=== PATIENT | male | born 1945 | race Caucasian/White ===

== ENCOUNTER → 2017-08-24 | Day surgery (SDC) | payer MEDICARE, BC ==
[~2017-08-24] MED LIST: ADVAIR; ADVAIR 500/501 EA INH; ALLEGRA ALLERGY60 MG PO; ASPIRIN81 MG PO; COMBIVENT RESPIM4 GM IH; CRESTOR10 MG PO; DIOVAN HCT 3201 EACH PO; DIOVAN80 MG PO; DUONEB NEB; FENTANYL CITRATE/PF 100MCG/2 ML INJ ONE; FISH OIL 1,2001 EACH; FLOMAX0.4 MG PO; INCRUSE INH; METOPROLOL TART25 MG PO; MIDAZOLAM HCL 2 MG/2 ML VIAL ONE; MONTELUKAST SOD10 MG PO; NORCO 10-325 T1 EACH PO; OR PHACO EYE KIT ONE; PANTOPRAZOLE SO40 MG PO; PLAVIX75 MG PO; PREOP PHACO EYE KIT ONE; PROTONIX40 MG/ML; STENDRA PO; TESTOSTERO200 MG/1 M IM; VITAMIN C1000 MG; VITAMIN C500 MG PO; VITAMIN E400 UNI1; ZETIA10 MG PO; [UNRECOGNIZED DRUG - OTHER]
== END | disposition home or self-care (01) ==
LOC: OR 10:05
PROVIDERS: ATTEND Ophthalmology
DX: H25.11 Age-related nuclear cataract, right eye (principal); I10 Essential (primary) hypertension; J45.909 Unspecified asthma, uncomplicated; I25.810 Atherosclerosis of coronary artery bypass graft(s) without angina pectoris; E78.5 Hyperlipidemia, unspecified; Z79.02 Long term (current) use of antithrombotics/antiplatelets; Z79.82 Long term (current) use of aspirin; Z95.1 Presence of aortocoronary bypass graft
CPT/HCPCS: 66984; J2250; V2788

== ENCOUNTER → 2017-09-07 | Day surgery (SDC) | payer MEDICARE, BC | END | disposition home or self-care (01) | LOC: OR 11:14 | PROVIDERS: ATTEND Ophthalmology | DX: H25.12 Age-related nuclear cataract, left eye (principal); I25.810 Atherosclerosis of coronary artery bypass graft(s) without angina pectoris; I10 Essential (primary) hypertension; E78.5 Hyperlipidemia, unspecified; J45.909 Unspecified asthma, uncomplicated; H91.90 Unspecified hearing loss, unspecified ear; Z79.02 Long term (current) use of antithrombotics/antiplatelets; Z79.82 Long term (current) use of aspirin; Z95.5 Presence of coronary angioplasty implant and graft; Z95.1 Presence of aortocoronary bypass graft | CPT/HCPCS: 66984; J2250 ==